=== PATIENT | male | born 1995 | race Caucasian/White ===

== ENCOUNTER 2019-06-05 18:08 | Emergency (ER) | payer OTHER, SELFPAY ==
[2019-06-05 18:09] VITALS: BP 119/75; PULSE 90; RESP 16; TEMP 36.9; O2SAT 97
--- NOTE | 2019-06-05 20:58 | ED.GENADUL_ITS ---
Discharge Plan Disposition Patient Disposition: HOME Condition: Stable Discharge Details Chief Complaint: EyeProblem Clinical Impression: Corneal abrasion Primary Care Provider: Paramjit Mitchell ED Provider: Lorraine Arroyo Home Meds and New Rx's Prescriptions: New oxycodone-acetaminophen [Percocet] 5-325 mg tablet 1 tab PO Q8H PRN (Reason: pain) Qty: 6 RF: 0 No Action omeprazole 40 MG capsule,delayed release(DR/EC) 40 mg PO DAILY RF: 0 Discharge Instructions Instructions: Oxycodone/Acetaminophen (By mouth), Erythromycin (Into the eye), Corneal Abrasion (ED) Additional Instructions: Please return immediately to the emergency department if you develop any new or worsening symptoms, if your symptoms do not improve as expected, or if you become otherwise concerned. It is extremely important that you call as soon as possible to make an appointment to be seen within 48 hours by an [employer] group leader in follow-up for this visit. Please apply the erythromycin ointment to your left eye 4 times a day for 5 days as we discussed. Please do not take sedating medications, use alcohol, or operate machinery, drive, or make important decisions while using Percocet. Stand Alone Forms: Work Release Referrals: Cristela Galeas DO [OSTEOPATHIC DOCTOR] - Paramjit Mitchell MD [Primary Care Provider] - Discharge Data Discharge Date/Time-TO BE ENTERED AT DEPARTURE: 06/05/19 21:11 Medical Decision Making Reginald Dan is a 23 y/o man with h/o GERD who presented to the emergency with sudden onset right sided eye pain, redness, and tearing without visual changes and with no known inciting event, no other associated symptoms. On exam Pt with right sided injected conjunctiva, clear watery discharge, no FB noted when lids everted and swept. Concern for corneal abrasion vs conjunctivitis. Plan for fluorescein staining. Visual acuity normal. Staining reveals uniform corneal abrasion at the 4 o'clock position. No vertical streaking. Neg seidels sign. Slit lamp exam reveals no hyphema or hypopyon, neg seidels, no cell or flare. Exam/hx not c/w corneal ulcer, endophthalmitis, glaucoma, HSV. Plan for topical erythromycin. I had a lengthy discussion with the Pt re: [facility] emergency department, home care, and importance of outpt f/u with ophthalmology within 24 hours. Pt verbalized understanding of the plan and was amenable. Pt was discharged to home with clear plan for outpt f/u. Medical Records Medical records reviewed: Yes I reviewed the patient's medical records. HPI General Mode of arrival: ambulatory . Date/Time Provider Initiated Documentation: 06/05/19 19:02 . Limitations to Documentation: no limitations . Information obtained by: patient, RN notes reviewed and old records reviewed . HPI Narrative: Reginald Dan is a 23 y/o man with h/o GERD presenting to the emergency department with eye pain. Pt reports that JPTA Pt was sitting in the car when he developed sudden onset right sided eye pain. Pt reports that pain had no inciting event, no known trauma to the eye, no apparent foreign body, no debris in area at time of onset of pain. Pain is superficial, burning/foreign body sensation. Pt reports since onset he has had redness of his right eye and tearing from the right eye. No visual changes. No deep eye pain. No pain with EOM. Left eye asymptomatic. He denies any other pain or other symptoms. Was previously in his usual state of health. No recent illness. Does not wear contacts or glasses. Related Data Home Medications Medication Instructions Recorded Confirmed omeprazole 40 mg PO DAILY 01/26/17 06/05/19 oxycodone-acetaminophen [Percocet] 1 tab PO Q8H PRN #6 tab 06/05/19 Previous Rx's Medication Instructions Recorded oxycodone-acetaminophen [Percocet] 1 tab PO Q8H PRN #6 tab 06/05/19 Allergies Allergy/AdvReac Type Severity Reaction Status Date / Time No Known Allergies Allergy Unverified 11/17/17 01:07 General Stated Complaint: EyeProblem GRACE: 4 Review of Systems Review of Systems Narrative: Constitutional: denies fevers Eyes: reports eye pain, tearing, denies visual changes ENT: denies ear pain, sore throat Cardiovascular: denies chest pain Respiratory: denies cough GI: denies abdominal pain, vomiting : denies flank pain MSK: denies back pain, neck pain, arthralgias Skin: denies rash Neuro: denies headaches PFSH Social History Smoking/Tobacco Use Status: Never Alcohol Intake: current Alcohol Intake frequency: a few times a month Drug use: Never Do you feel safe at home: Yes Do you feel safe in your relationship?: Yes Exam Narrative Exam Narrative: Constitutional: well and [id number], pleasant, conversing normally HENT: head atraumatic/normocephalic/normal inspection, mucous membranes moist Eyes: left conjunctiva normal, left sclera normal, pupils 3mm b/l ERRLA. Right conjunctiva injected, tearing of the right eye, no purulent discharge. EOMI and painless b/l, no nystagmus. Right upper and lower lids everted and swept, no foreign body. Neck: no stridor, normal ROM, trachea midline Resp: normal work of breathing Cardio: normal rate, normal rhythm Skin: warm, dry, normal color, no rash Neuro: alert, not altered, grossly non-focal, normal tone Ext: moving all extremities equally Psych: normal mood, normal affect, normal behavior Course Vital Signs Vital signs: Vital Signs Temperature 36.9 C 06/05/19 18:09 Pulse 90 06/05/19 18:09 Respiratory Rate 16 06/05/19 18:09 Blood Pressure 119/75 06/05/19 18:09 Pulse Oximetry 97 06/05/19 18:09 Temperature 36.9 C 06/05/19 18:09 Temperature Source Skin 06/05/19 18:09 Pulse 90 06/05/19 18:09 Respiratory Rate 16 06/05/19 18:09 Respiratory Effort Non-Labored 06/05/19 18:13 Blood Pressure 119/75 06/05/19 18:09 Blood Pressure Position Sitting 06/05/19 18:09 Pulse Oximetry 97 06/05/19 18:09 Oxygen Delivery Method Room Air 06/05/19 18:09 Oxygen Flow Rate 0 06/05/19 18:09 Pain Level 3 06/05/19 18:09
[2019-06-05 21:10] VITALS: BP 119/75; PULSE 90; RESP 16; O2SAT 97
[2019-06-05] MEDS: Erythromycin Ophth Oint 3.5 GM TUBE OS (21:10)
--- NOTE | 2019-06-08 14:29 | NUR.NOTE ---
Nursing Note: Faxed provider note to [facility] for follow up. Fatmata Nicholson.
== END 2019-06-05 21:11 | disposition home or self-care (01) ==
PROVIDERS: Emergency Provider Student in an Organized Health Care Education/Training Program; PCP Internal Medicine
DX: S05.02XA Injury of conjunctiva and corneal abrasion without foreign body, left eye, initial encounter (principal)
CPT/HCPCS: 99283

== ENCOUNTER 2020-03-12 05:46 | Emergency (ER) | payer OTHER, SELFPAY ==
[2020-03-12 05:48] VITALS: BP 137/84; PULSE 79; RESP 16; TEMP 36.6; O2SAT 97
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
[2020-03-12 06:15] VITALS: BP 137/84; PULSE 79; RESP 16; TEMP 36.6; O2SAT 97
[2020-03-12] MEDS: Acetaminophen 500 MG TAB 1000 MG PO (06:16)
[2020-03-12] MEDS: Ibuprofen 600 MG TAB PO (06:16)
== END 2020-03-12 06:10 | disposition home or self-care (01) ==
LOC: ER 06:16
PROVIDERS: Emergency Provider Emergency Medicine; PCP Internal Medicine
DX: S60.511A Abrasion of right hand, initial encounter (principal); S60.512A Abrasion of left hand, initial encounter; S00.81XA Abrasion of other part of head, initial encounter; M25.562 Pain in left knee; V40.5XXA Car driver injured in collision with pedestrian or animal in traffic accident, initial encounter
CPT/HCPCS: 90471; 99284; 99283

== ENCOUNTER 2020-09-12 12:30 | Outpatient (REF) | payer BC, OTHER, SELFPAY ==
[2020-09-13 19:49] LABS: COVID-19 RT-PCR UVMMC Result Positive (Negative)
== END 2020-09-12 12:50 ==
LOC: NCHCN 12:30
PROVIDERS: PCP Internal Medicine; Visit Provider Nurse Practitioner Family
DX: Z20.828 Contact with and (suspected) exposure to other viral communicable diseases (principal)
CPT/HCPCS: U0003